=== PATIENT | female | born 1995 | race Two or more races ===

== ENCOUNTER 2020-11-22 22:21 | Emergency (ER) | payer SELFPAY | END 2020-11-22 22:44 | disposition short-term general hospital (02) | LOC: EDBD 22:21 → ER 22:29 | DX: I46.9 Cardiac arrest, cause unspecified (principal); S01.91XA Laceration without foreign body of unspecified part of head, initial encounter; S20.212A Contusion of left front wall of thorax, initial encounter; V89.2XXA Person injured in unspecified motor-vehicle accident, traffic, initial encounter; Y93.89 Activity, other specified; Y92.410 Unspecified street and highway as the place of occurrence of the external cause; Y99.8 Other external cause status | CPT/HCPCS: 71045; 92950; 99291 ==